=== PATIENT | female | born 1995 ===

== ENCOUNTER 2019-03-06 19:56 | Emergency (ER) | payer SELFPAY ==
[2019-03-06] MEDS ORDERED: cephALEXin 500 MG CAP PO ONE (20:24)
[2019-03-06] MEDS ORDERED: ONDANSETRON 4 MG/2 ML INJ IM ONE (20:24)
[2019-03-06] MEDS ORDERED: TETANUS,DIPH,PERTUSS(ACELL) VACCINE 0.5 ML SYRINGE IM ONE (20:24)
[2019-03-06] MEDS ORDERED: MORPHINE 4 MG/1 ML INJ IM ONE (20:24)
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
[2019-03-07 00:05] VITALS: BP 101/64
== END 2019-03-06 21:55 | disposition home or self-care (01) ==
LOC: ED 19:56
DX: T23.202A Burn of second degree of left hand, unspecified site, initial encounter (principal); Z79.899 Other long term (current) drug therapy; X11.8XXA Contact with other hot tap-water, initial encounter; Y93.89 Activity, other specified; Y92.89 Other specified places as the place of occurrence of the external cause; Y99.8 Other external cause status
CPT/HCPCS: 16020; 90471; 90715; 96372; 99282; J2270; J2405

== ENCOUNTER 2019-05-07 00:03 | Emergency (ER) | payer OTHER ==
[2019-05-07 02:32] LABS: HCG Qualitative,Urine Negative (Negative)
[2019-05-07 05:55] LABS: Bilirubin,Urine NEG (Negative); Blood,Urine NEG (Negative); Color,Urine Yellow (Yellow); Mucus,Urine FEW /HPF; Protein,Urine <15 mg/dL mg/dL (Negative); Urobilinogen,Urine < 2.0 mg/dL (<2.0)
[2019-05-07] MEDS ORDERED: IBUPROFEN 600 MG TAB PO ONE (06:17)
[2019-05-07] MEDS ORDERED: LIDOCAINE-MPF (1%) 10 MG/1 ML VIAL 5 ML INFILTRATI ONE ×2 (06:17→06:23)
[2019-05-07] MEDS ORDERED: AZITHROMYCIN 250 MG TAB PO ONE (06:17)
--- NOTE | 2019-05-07 06:23 | Emergency Department Report ---
ED Female HPI - General Chief complaint: Urogenital-Female Stated complaint: VAGINAL DISCHARGE Source: patient Mode of arrival: Ambulatory Limitations: No Limitations - History of Present Illness Initial comments: Patient is a nulliparous 23-year-old [place] female with medical history presents to the ED with Rosario of acute onset persistent dysuria, peak yellowish green vaginal discharge with malodorous smell, urinary frequency and urgency, dyspareunia and pelvic pain for the last 1 month. Patient states that she was initially treated by her primary care physician for a suspected urinary tract infection and yeast infection that soon after they medications well completed, the symptoms resumed and have been worsening since then. Patient states that she is sexually active with multiple sexual partners and no protection. Patient denies fever, chills, nausea, vomiting, chest pain, shortness of breath, dizziness, headache, Motrin, change in vision or vaginal bleeding and low back pain. MD Complaint: vaginal discharge, dysuria, pelvic pain, possible STD, other (vaginal pain) -: Sudden, month(s) (1) Location: suprapubic, other (vaginal) Radiation: non-radiating Severity: severe Severity scale (0 -10): 7 Quality: sharp, burning Consistency: constant Improves with: none Worsens with: urination, intercourse Are you Now?: No Last Menstrual Period: 04/28/19 EDC: 02/02/20 Associated Symptoms: denies other symptoms, vaginal discharge, abdominal pain (suprapubic pressure), dysuria. denies: vaginal bleeding, nausea/vomiting, fever/chills, headaches, loss of appetite, hematuria, rash, seizure, shortness of breath, syncope, weakness - Related Data Sexually active: Yes : 0 Para: 0 A: 0 Previous Rx's Medication Instructions Recorded Last Taken Type Gauze Bandage [Bandage Roll] 1 each TP DAILY #10 bandage 03/06/19 Unknown Rx Gauze Bandage [Curad Gauze Pads] 1 each TP BID #50 bandage 03/06/19 Unknown Rx HYDROcodone/APAP 5-325 [[place] 1 each PO Q6HR PRN #12 tablet 03/06/19 Unknown Rx 5-325 mg TAB] SILVER sulfADIAZINE 50 GRAM 1 applicatio TP BID #1 tube 03/06/19 Unknown Rx [Thermazene 50 Gram] cephALEXin [Keflex] 500 mg PO Q8HR 10 Days #30 cap 03/06/19 Unknown Rx Fluconazole [Diflucan TAB] 150 mg PO ONCE #2 tablet 05/07/19 Unknown Rx Ibuprofen [Motrin] 600 mg PO Q8H PRN #20 tablet 05/07/19 Unknown Rx Ondansetron [Zofran Odt] 4 mg PO Q6HR PRN #12 tab.rapdis 05/07/19 Unknown Rx metroNIDAZOLE [Flagyl] 500 mg PO Q12HR #20 tablet 05/07/19 Unknown Rx Allergies Allergy/AdvReac Type Severity Reaction Status Date / Time No Known Allergies Allergy Unverified 05/07/19 00:50 ED Review of Systems ROS: Stated complaint: VAGINAL DISCHARGE Other details as noted in HPI Constitutional: denies: chills, fever Eyes: denies: eye pain, eye discharge, vision change ENT: denies: ear pain, throat pain Respiratory: denies: cough, shortness of breath, wheezing Cardiovascular: denies: chest pain, palpitations Endocrine: no symptoms reported Gastrointestinal: denies: abdominal pain, nausea, diarrhea Genitourinary: urgency, dysuria, frequency, discharge, dyspareunia Musculoskeletal: denies: back pain, joint swelling, arthralgia Skin: denies: rash, lesions Neurological: denies: headache, weakness, paresthesias Psychiatric: denies: anxiety, depression Hematological/Lymphatic: denies: easy bleeding, easy bruising ED Past Medical Hx - Past Medical History Previous Medical History?: No - Surgical History Past Surgical History?: No - Social History Smoking Status: Never Smoker Substance Use Type: None - Medications Home Medications: Home Medications Medication Instructions Recorded Confirmed Last Taken Type Gauze Bandage [Bandage Roll] 1 each TP DAILY #10 bandage 03/06/19 Unknown Rx Gauze Bandage [Curad Gauze Pads] 1 each TP BID #50 bandage 03/06/19 Unknown Rx HYDROcodone/APAP 5-325 [[place] 1 each PO Q6HR PRN #12 tablet 03/06/19 Unknown Rx 5-325 mg TAB] SILVER sulfADIAZINE 50 GRAM 1 applicatio TP BID #1 tube 03/06/19 Unknown Rx [Thermazene 50 Gram] cephALEXin [Keflex] 500 mg PO Q8HR 10 Days #30 cap 03/06/19 Unknown Rx Fluconazole [Diflucan TAB] 150 mg PO ONCE #2 tablet 05/07/19 Unknown Rx Ibuprofen [Motrin] 600 mg PO Q8H PRN #20 tablet 05/07/19 Unknown Rx Ondansetron [Zofran Odt] 4 mg PO Q6HR PRN #12 tab.rapdis 05/07/19 Unknown Rx metroNIDAZOLE [Flagyl] 500 mg PO Q12HR #20 tablet 05/07/19 Unknown Rx ED Physical Exam - General Limitations: No Limitations General appearance: alert, in no apparent distress - Head Head exam: Present: atraumatic, normocephalic, normal inspection - Eye Eye exam: Present: normal appearance, PERRL, EOMI Pupils: Present: normal accommodation - ENT ENT exam: Present: normal exam, normal orophraynx, mucous membranes moist, TM's normal bilaterally, normal external ear exam - Neck Neck exam: Present: normal inspection, full ROM. Absent: tenderness, lymphadenopathy - Respiratory Respiratory exam: Present: normal lung sounds bilaterally. Absent: respiratory distress, wheezes, chest wall tenderness, accessory muscle use, decreased breath sounds - Cardiovascular Cardiovascular Exam: Present: regular rate, normal rhythm, normal heart sounds. Absent: systolic murmur, diastolic murmur, rubs, gallop - GI/Abdominal GI/Abdominal exam: Present: soft, normal bowel sounds. Absent: tenderness, guarding, hyperactive bowel sounds, hypoactive bowel sounds, organomegaly, mass - External exam: Present: normal external exam Speculum exam: Present: vaginal discharge (thick greenish yellow vaginal discharge with malodorous smell), cervical discharge Bi-manual exam: Present: cervical motion tendernes, uterine tenderness, other (female RN present during during the pelvic exam) - Extremities Exam Extremities exam: Present: normal inspection, full ROM, normal capillary refill - Back Exam Back exam: Present: normal inspection, full ROM. Absent: muscle spasm, paraspinal tenderness - Neurological Exam Neurological exam: Present: alert, oriented X3, CN II-XII intact, normal gait, reflexes normal - Psychiatric Psychiatric exam: Present: normal affect, normal mood - Skin Skin exam: Present: warm, dry, intact, normal color. Absent: rash ED Course Vital Signs 05/07/19 00:06 Temperature 98.7 F Pulse Rate 74 Respiratory 16 Rate Blood Pressure 100/60 O2 Sat by Pulse 98 Oximetry ED Medical Decision Making - Medical Decision Making This is a 23-year-old female who presented to the ED with complaint of acute onset persistent pelvic pressure, vaginal discharge, dyspareunia, dysuria, urinary frequency and urgency for one month. In the ED, patient is alert and oriented 3 and is not in distress. Urinalysis shows a negative hCG test is unremarkable. Wet prep shows significant Gadnerella vaginalis but negative for Trichomonas or yeast. Chlamydia and gonorrhea tests are pending. Patient was treated empirically for chlamydia and gonorrhea based on the physical exam findings of greenish yellow vaginal discharge and cervical motion tenderness. The patient was descended home on antibiotics and antifungal, as well as pain medications and was advised to follow-up with primary care physician or [employer] physician in 7-10 days for reevaluation or return to the ED immediately if symptoms get worse. - Differential Diagnosis STD; Bacterial vaginosis; UTI; Dimple vaginitis; Trichomonas; PID Critical care attestation.: If time is entered above; I have spent that time in minutes in the direct care of this critically ill patient, excluding procedure time. ED Disposition Clinical Impression: Acute pelvic inflammatory disease (PID), Bacterial vaginosis Disposition: - TO HOME OR SELFCARE Is pt being admited?: No Does the pt Need Aspirin: No Condition: Stable Instructions: Bacterial Vaginosis (ED), Pelvic Inflammatory Disease (ED) Additional Instructions: Take medications with food, drink plenty of fluids and follow-up with your primary care physician in 7-10 days for reevaluation. Consider follow-up with [facility] for further STD testing. Prescriptions: Fluconazole [Diflucan TAB] 150 mg PO ONCE #2 tablet metroNIDAZOLE [Flagyl] 500 mg PO Q12HR #20 tablet Ibuprofen [Motrin] 600 mg PO Q8H PRN #20 tablet PRN Reason: Pain Ondansetron [Zofran Odt] 4 mg PO Q6HR PRN #12 tab.rapdis PRN Reason: Nausea Referrals: [facility] [Outside] - 3-5 Days Forms: STI Treatment and Prevention Time of Disposition: 06:29 Print Language: LAO
[2019-05-07] MEDS ORDERED: LIDOCAINE (2%) 20 MG/1 ML VIAL 20 ML MDV INFILTRATI ONE (06:36)
[2019-05-07 06:52] VITALS: BP 120/74
== END 2019-05-07 06:52 | disposition home or self-care (01) ==
LOC: ED 00:03
DX: N76.0 Acute vaginitis (principal); N73.0 Acute parametritis and pelvic cellulitis; Z79.899 Other long term (current) drug therapy
CPT/HCPCS: 81001; 81025; 87210; 87591; 96372; J0696